=== PATIENT | male | born 1965 | race Caucasian/White ===

== ENCOUNTER 2018-04-28 11:03 | Day surgery (SDC) | payer BC, SELFPAY ==
[2018-04-28] VITALS (7 sets, daily range): BP systolic 83–151; BP diastolic 46–85; PULSE 57–90; RESP 16–22; TEMP 36.5–36.6; O2SAT 95–99; BMI 24.0
--- NOTE | 2018-04-28 | PATH_ITS ---
[facility] Accession Number: [id number] . 01 Material submitted: . TRANSVERSE COLON POLYP . 02 Diagnosis: Transverse Colon, Polyp, Biopsy: Tubular adenoma. MRV/04/29/2018 . 02 Electronically signed: . Velma Martinez MD, Pathologist NPI- [id number] . 01 Gross description: . Received one formalin-filled container labeled with the patient's name and labeled transverse colon polyp. The specimen consists of two 0.2 to 0.4 cm portions of tissue. Entirely submitted in one cassette. ([facility] [place]:[id number]) /[facility] . 02 Pathologist provided ICD-10: D12.3 . 02 CPT . 275445 Specimen Comment: A duplicate report has been generated due to demographic updates. Performed at: 01 [facility] [address] [id number] MD Abdoulaye Arciniega MD Phone: [phone] Performed at: 02 [facility] [address] [place], [place] [id number] MD Velma Martinez MD Phone: [phone]
[2018-04-28] MEDS: LACTATED RINGERS 1,000 ML 42 ML IV (12:03)
--- NOTE | 2018-04-28 13:03 | PM.PREOP ---
Pre-operative Note Interval Note Pre-op Check: Yes History & Physical Reviewed by Physician and Yes Exam Performed Changes: No H&P completed within 30 days and has changed as indicated here:: Patient seen and examined in the preoperative area. History physical examination as documented within the last 30 days is on the chart and has no changes. Bowel prep has been completed. We will proceed with colonoscopy today as planned.
--- NOTE | 2018-04-28 13:48 | PM.OP.1 ---
Operative Date/Time/Diagnoses Date of procedure: 04/28/18 Time of procedure: 13:48 Post-op diagnosis: other (Transverse colon polyp but otherwise normal colon and rectum) Procedure & Clinicians Procedure: Colonoscopy with cold forceps polypectomy Same procedure as scheduled: Yes Indications: 53-year-old male with personal history of colon polyps and recent episode of bright red blood per rectum. He required colorectal surveillance and colonoscopy was recommended. He has had issues with conscious sedation in the past and a remote history of difficult colonoscopy. I therefore recommended that he undergo colonoscopy with anesthesia. Surgeon: Adrien Rivera Click Yes if Unassisted: Yes Anesthesia Type: General Operative Notes Findings: 1. Tortuous and redundant colon but without evidence of stricture or mass 2. Normal terminal ileum 3. Single small polyp in the transverse colon at 65 cm, removed 4. No significant hemorrhoid disease 5. No obvious source of recent rectal bleeding 6. No obvious diverticulosis Closure Type: not applicable Specimen(s): other (Transverse colon polyp at 65 cm) Estimated Blood Loss (mL): 2 Blood products transfused: none Procedure in detail: After obtaining informed consent the patient was brought to the operating room and left supine on the gurney. He was attached all appropriate monitors and placed in left lateral decubitus position. SCOAP time out was performed per standard protocol. After satisfactory induction of anesthesia a digital rectal examination was performed. There were no masses or other abnormalities. Prostate was smooth without nodules. Colonoscope was inserted into the rectum and the bowel was insufflated with carbon dioxide. Under direct visualization of the colonic the scope was advanced to the cecum where the appendiceal orifice and ileocecal valve were identified. Terminal ileum was intubated. Scope was slowly withdrawn and the bowel was meticulously and circumferentially examined. Bowel preparation was good. Findings are as above. A single polyp was removed with cold forceps. Hemostasis was verified. Total withdrawal time was 11 min 50 sec. Retroflexed view of the distal rectum and anus revealed no significant hemorrhoid disease or other abnormalities. Scope was withdrawn and the procedure terminated. Patient taken to recovery in stable condition. Complications: none Condition: stable Disposition: PACU Plan for aftercare: 1. Discharge home 2. Repeat colonoscopy in 5 years pending biopsy results
== END 2018-04-28 14:50 | disposition home or self-care (01) ==
PROVIDERS: Family Provider Family Medicine; PCP Internal Medicine; Visit Provider Surgery
PROC: 0DJD8ZZ Inspection of Lower Intestinal Tract, Via Natural or Artificial Opening Endoscopic (ICD-10-PCS; CPT 45378; principal; 2018-04-28 12:15)
DX: K62.5 Hemorrhage of anus and rectum (principal); Z86.010 Personal history of colon polyps; I10 Essential (primary) hypertension; F84.0 Autistic disorder; D12.3 Benign neoplasm of transverse colon
CPT/HCPCS: 45380; J2250; J2704; J3010

== ENCOUNTER → 2019-01-14 15:50 | Outpatient (CLI) | payer BC, SELFPAY ==
[2019-01-14 17:06] LABS: Alanine Aminotransferase 21 IU/L (21-72); Albumin 4.7 g/dL (3.5-5.0); Albumin Globulin Ratio 1.8 (1.0-2.8); Alkaline Phosphatase 37 U/L (38-126); Aspartate Aminotransferase 32 IU/L (17-59); BUN Creatinine Ratio 24.4 (6-22); Bilirubin Total 0.5 mg/dL (0.2-1.3); Blood Urea Nitrogen 22 mg/dL (9-20); Calcium 9.6 mg/dL (8.4-10.2); Carbon Dioxide 27 mmol/L (22-32); Chloride 101 mmol/L (98-107); Estimated Glomerular Filt Rate > 60.0 mL/min (>60); Globulin 2.6 g/dL (1.7-4.1); Glucose 89 mg/dL (70-100); HEMOLYSIS < 15 (0-50); Potassium 4.5 mmol/L (3.4-5.1); Sodium 139 mmol/L (137-145); Total Protein 7.3 g/dL (6.3-8.2)
== END ==
PROVIDERS: PCP Internal Medicine; Visit Provider Internal Medicine
DX: I10 Essential (primary) hypertension (principal)
CPT/HCPCS: 36415; 80053

== ENCOUNTER → 2020-06-08 15:31 | Outpatient (CLI) | payer OTHER, SELFPAY ==
[2020-06-08 16:08] LABS: BUN Creatinine Ratio 19.7 (6-22); Blood Urea Nitrogen 14 mg/dL (9-20); Calcium 9.6 mg/dL (8.4-10.2); Carbon Dioxide 32 mmol/L (22-32); Chloride 101 mmol/L (98-107); Estimated Glomerular Filt Rate > 60.0 mL/min (>60); Glucose 95 mg/dL (70-100); HEMOLYSIS 21 (0-50); Potassium 4.3 mmol/L (3.4-5.1); Sodium 136 mmol/L (137-145)
== END ==
PROVIDERS: PCP Internal Medicine; Referring Provider Internal Medicine; Visit Provider Internal Medicine
DX: I10 Essential (primary) hypertension (principal); R01.1 Cardiac murmur, unspecified
CPT/HCPCS: 36415; 80048

== ENCOUNTER → 2020-08-28 12:41 | Outpatient (CLI) | payer OTHER, SELFPAY ==
[2020-08-28] MEDS: COVID-19 VACC, Ad26(JANSSEN)/PF 0.5 ML IM (12:55)
== END ==
PROVIDERS: PCP Internal Medicine; Visit Provider Internal Medicine
DX: Z23 Encounter for immunization (principal)
CPT/HCPCS: 0031A; 91303

== ENCOUNTER → 2020-10-10 11:27 | Outpatient (CLI) | payer OTHER, SELFPAY ==
[2020-10-10 13:07] LABS: Alanine Aminotransferase 37 IU/L (<50); Albumin 4.8 g/dL (3.5-5.0); Albumin Globulin Ratio 1.5 (1.0-2.8); Alkaline Phosphatase 36 U/L (38-126); Aspartate Aminotransferase 49 IU/L (17-59); BUN Creatinine Ratio 17.3 (6-22); Bilirubin Total 0.9 mg/dL (0.2-1.3); Blood Urea Nitrogen 14 mg/dL (9-20); Calcium 10.1 mg/dL (8.4-10.2); Carbon Dioxide 29 mmol/L (22-32); Chloride 101 mmol/L (98-107); Cholesterol 230 mg/dL (140-199); Estimated Glomerular Filt Rate > 60.0 mL/min (>60); Globulin 3.1 g/dL (1.7-4.1); Glucose 102 mg/dL (70-100); HEMOLYSIS < 15 (0-50); Potassium 4.8 mmol/L (3.4-5.1); Sodium 138 mmol/L (137-145); Total Protein 7.9 g/dL (6.3-8.2); Triglycerides 34 mg/dL (35-150)
[2020-10-10 13:25] LABS: HDL Cholesterol 126 mg/dL (40-60); LDL Cholesterol Calculated 97 mg/dL (<100)
[2020-10-10 13:33] LABS: Prostate Specific Antigen Scrn 1.68 ng/mL (0.1-4.0)
== END ==
PROVIDERS: PCP Internal Medicine; Referring Provider Internal Medicine; Visit Provider Internal Medicine
DX: I10 Essential (primary) hypertension (principal); Z12.5 Encounter for screening for malignant neoplasm of prostate; Z13.1 Encounter for screening for diabetes mellitus; Z13.220 Encounter for screening for lipoid disorders; Z13.6 Encounter for screening for cardiovascular disorders
CPT/HCPCS: 36415; 80053; 80061; G0103

== ENCOUNTER → 2021-10-05 08:39 | Outpatient (CLI) | payer OTHER, SELFPAY ==
[2021-10-05 10:24] LABS: Alanine Aminotransferase 39 IU/L (<50); Albumin 4.9 g/dL (3.5-5.0); Albumin Globulin Ratio 1.9 (1.0-2.8); Alkaline Phosphatase 35 U/L (38-126); Aspartate Aminotransferase 38 IU/L (17-59); BUN Creatinine Ratio 18.5 (6-22); Bilirubin Total 0.8 mg/dL (0.2-1.3); Blood Urea Nitrogen 15 mg/dL (9-20); Calcium 9.8 mg/dL (8.4-10.2); Carbon Dioxide 31 mmol/L (22-32); Chloride 106 mmol/L (98-107); Cholesterol 215 mg/dL (140-199); Estimated Glomerular Filt Rate > 60 mL/min (>60); Globulin 2.6 g/dL (1.7-4.1); Glucose 99 mg/dL (70-100); HEMOLYSIS < 15 (0-50); Potassium 5.1 mmol/L (3.4-5.1); Sodium 142 mmol/L (137-145); Total Protein 7.5 g/dL (6.3-8.2); Triglycerides 53 mg/dL (35-150)
[2021-10-05 10:33] LABS: HDL Cholesterol 111 mg/dL (40-60); LDL Cholesterol Calculated 93 mg/dL (<100)
[2021-10-05 10:53] LABS: Prostate Specific Antigen Scrn 2.37 ng/mL (0.1-4.0)
== END ==
PROVIDERS: PCP Internal Medicine; Referring Provider Internal Medicine; Visit Provider Internal Medicine
DX: I10 Essential (primary) hypertension (principal); Z12.5 Encounter for screening for malignant neoplasm of prostate; Z13.6 Encounter for screening for cardiovascular disorders
CPT/HCPCS: 36415; 80053; 80061; G0103

== ENCOUNTER → 2022-10-11 08:11 | Outpatient (CLI) | payer OTHER, SELFPAY ==
[2022-10-11 10:09] LABS: HEMOLYSIS < 15 (0-50)
[2022-10-11 10:31] LABS: Alanine Aminotransferase 64 IU/L (<50); Albumin 4.9 g/dL (3.5-5.0); Albumin Globulin Ratio 1.8 (1.0-2.8); Alkaline Phosphatase 46 U/L (38-126); Aspartate Aminotransferase 64 IU/L (17-59); BUN Creatinine Ratio 19.7 (6-22); Bilirubin Total 0.9 mg/dL (0.2-1.3); Blood Urea Nitrogen 14 mg/dL (9-20); Calcium 9.3 mg/dL (8.4-10.2); Carbon Dioxide 28 mmol/L (22-32); Chloride 100 mmol/L (98-107); Estimated Glomerular Filt Rate > 60 mL/min (>60); Globulin 2.7 g/dL (1.7-4.1); Glucose 91 mg/dL (70-100); Potassium 4.4 mmol/L (3.4-5.1); Sodium 137 mmol/L (137-145); Total Protein 7.6 g/dL (6.3-8.2)
[2022-10-11 15:07] LABS: Prostate Specific Antigen Scrn 1.48 ng/mL (0.1-4.0)
== END ==
PROVIDERS: PCP Internal Medicine; Referring Provider Internal Medicine; Visit Provider Internal Medicine
DX: I10 Essential (primary) hypertension (principal); Z79.899 Other long term (current) drug therapy; Z12.5 Encounter for screening for malignant neoplasm of prostate
CPT/HCPCS: 36415; 80053; G0103

== ENCOUNTER → 2023-04-10 08:15 | Outpatient (CLI) | payer OTHER, SELFPAY ==
[2023-04-10 10:28] LABS: Alanine Aminotransferase 50 IU/L (<50); Albumin 4.7 g/dL (3.5-5.0); Albumin Globulin Ratio 1.7 (1.0-2.8); Alkaline Phosphatase 44 U/L (38-126); Aspartate Aminotransferase 63 IU/L (17-59); BUN Creatinine Ratio 22.1 (6-22); Bilirubin Total 0.8 mg/dL (0.2-1.3); Blood Urea Nitrogen 15 mg/dL (9-20); Carbon Dioxide 29 mmol/L (22-32); Chloride 99 mmol/L (98-107); Estimated Glomerular Filt Rate > 60 mL/min (>60); Globulin 2.7 g/dL (1.7-4.1); Glucose 107 mg/dL (70-100); HEMOLYSIS < 15 (0-50); Potassium 4.2 mmol/L (3.4-5.1); Sodium 137 mmol/L (137-145); Total Protein 7.4 g/dL (6.3-8.2)
== END ==
PROVIDERS: PCP Internal Medicine; Referring Provider Internal Medicine; Visit Provider Internal Medicine
DX: R74.01 Elevation of levels of liver transaminase levels (principal); I10 Essential (primary) hypertension
CPT/HCPCS: 36415; 80053

== ENCOUNTER → 2023-04-14 12:52 | Outpatient (CLI) | payer OTHER, SELFPAY ==
--- NOTE | 2023-04-14 12:54 | DI.US.S_ITS ---
PROCEDURE: US ABDOMEN LIMITED INDICATIONS: TRANSAMINITIS TECHNIQUE: Real-time scanning was performed of the abdominal and retroperitoneal organs, with image documentation. COMPARISON: None. FINDINGS: Liver: The liver measures 15.9 cm in length and demonstrates increased echogenicity. Gallbladder: The gallbladder wall measures 1.7 mm in diameter. No stones, sludge, pericholecystic fluid, or sonographic Loera sign. Biliary ducts: Intrahepatic bile ducts are non-dilated. Extrahepatic bile duct caliber measures 3.7 mm. Normal is 6-7 mm or less in diameter, or 10 mm or less post-cholecystectomy. Pancreas: Visualized portions of the pancreas are sonographically normal. The body and tail of the pancreas are not well visualized. IMPRESSION: 1. No cholelithiasis or findings to suggest choledocholithiasis or acute cholecystitis. 2. Increased hepatic echogenicity noted likely related to fatty infiltration of the liver but other sources of hepatocellular disease cannot be excluded. Dictated by: Bia Golden M.D. on 04/14/2023 at 14:40 Approved by: Bia Golden M.D. on 04/14/2023 at 14:41
[2023-04-14 14:35] LABS: Prothrombin Time 11.3 SECONDS (10.1-12.7)
[2023-04-14 14:41] LABS: Alanine Aminotransferase 57 IU/L (<50); Albumin 4.7 g/dL (3.5-5.0); Albumin Globulin Ratio 1.6 (1.0-2.8); Alkaline Phosphatase 40 U/L (38-126); Aspartate Aminotransferase 57 IU/L (17-59); Bilirubin Total 1.1 mg/dL (0.2-1.3); Bilirubin Unconjugated 1.1 mg/dL (0.0-1.1); Creatine Kinase 119 U/L (55-170); HEMOLYSIS < 15 (0-50); Total Protein 7.7 g/dL (6.3-8.2)
[2023-04-14 14:57] LABS: HEMOLYSIS < 15 (0-50); Iron 118 ug/dL (49-181)
[2023-04-14 15:08] LABS: Percent Iron Saturation 47 % (20-50); Total Iron Binding Capacity 252 ug/dL (261-462); Transferrin 211 mg/dL (206-381)
[2023-04-14 15:29] LABS: TSH w/ Reflex to FT4 0.67 uIU/mL (0.47-4.68)
[2023-04-14 17:13] LABS: Hepatitis B Surface Antigen NEGATIVE s/c (NEGATIVE)
[2023-04-14 17:26] LABS: Hep C Virus Ab w/Reflex Quant NEGATIVE s/c (NEGATIVE)
[2023-04-15 05:09] LABS: Ceruloplasmin 19.7 mg/dL (16.0-31.0)
[2023-04-16 04:09] LABS: Hepatitis B Surf Ab Qualitativ Reactive (.)
[2023-04-16 21:40] LABS: Smooth Muscle Antibody 12 Units (0-19)
[2023-04-17 18:17] LABS: ANA Screen, IFA Negative (.)
[2023-04-18 20:55] LABS: Deamidated Gliadin IgA 8 units (0-19); Deamidated Gliadin IgG 4 units (0-19); IGA 376 mg/dL (90-386); t-Transglutaminase IgA <2 U/mL (0-3)
== END ==
PROVIDERS: PCP Internal Medicine; Referring Provider Internal Medicine; Visit Provider Internal Medicine
DX: R74.01 Elevation of levels of liver transaminase levels (principal)
CPT/HCPCS: 36415; 76705; 80076; 82390; 82550; 82784; 83516; 83540; 83550; 84443; 85610; 86038; 86255; 86706; 86803; 87340

== ENCOUNTER 2023-09-11 10:21 | Day surgery (SDC) | payer OTHER, SELFPAY ==
--- NOTE | 2023-09-11 | PATH_ITS ---
[facility] Accession Number: [id number] No. of containers..03 Tissue . 01 Material submitted: . PART A: colon - ASCENDING COLON POLYP PART B: colon - TRANSVERSE COLON POLYP PART C: rectum - RECTAL POLYP . 01 Diagnosis: A. Colon, ascending, polyp biopsy: Tubular adenoma. -- B. Colon, transverse, polyp biopsy: Tubular adenoma. -- C. Colon, rectum, polyp biopsy: Hyperplastic polyp. TXN 09/15/2023 1335 Local . 01 Electronically signed: . Tawfegabriel Gregorio MD, Pathologist NPI- [id number] . 01 Gross description: . A. Received in formalin, labeled with two identifiers and ascending colon polyp, is a barrera soft tissue fragment measuring 0.4 cm in greatest dimension. Submitted entirely in cassette A1. B. Received in formalin, labeled with two identifiers and transverse colon polyp, is a barrera soft tissue fragment measuring 0.3 cm in greatest dimension. Submitted entirely in cassette B1. C. Received in formalin, labeled with two identifiers and rectal polyp, is a barrera soft tissue fragment measuring 0.3 cm in greatest dimension. Submitted entirely in cassette C1. ([facility]:[id number]) /[facility] 09/13/2023 1627 Local . 01 Pathologist provided ICD-10: Z12.11 . 01 CPT . 495745, 980024, 634761 Specimen Comment: A courtesy copy of this report has been sent to [phone] Performed at: 01 [facility] [address] [place] [address] [address] [facility], [place], [place] [id number] MD Abdoulaye Arciniega MD Phone: [phone]
[2023-09-11 10:47] VITALS: BP 175/85; PULSE 83; RESP 16; TEMP 37; O2SAT 96
[2023-09-11] MEDS: LACTATED RINGERS 1,000 ML 42 ML IV (10:55)
--- NOTE | 2023-09-11 10:59 | PM.HP.1 ---
History of Present Illness History of Present Illness Date Patient Seen: 09/11/23 Time Patient Seen: 10:59 Chief complaint: Colonoscopy Narrative: Avila is a 58-year-old man who is here for colonoscopy. His last 1 was in [address] Rivera. He did have a tubular adenoma removed. He has had other polyps removed. [facility] Medical History (Updated 09/11/23 @ 11:00 by Silverio Guo MD) Fatty liver disease, nonalcoholic History of adenomatous polyp of colon (01/08/12) Benign essential HTN Colon polyps (11/05/13) Autism spectrum disorder (2014) Surgical History History of colonoscopy with polypectomy (11/05/13) Family History Grandmother Cancer Diabetes mellitus Father Hypertension Social History marital status: number of children: 0 household members: spouse lives independently: Yes caregiver/support person: No housing: other pets and animals: Yes education level: master's degree occupational status: employed [employer]/faith: Agn[employer] travel history: over 6 months ago leisure activities: other Smoking Status: Smoker, status unknown Tobacco: How many years used: 0 quit status: quit date established second hand exposure: Yes (Young adulthood) alcohol intake: current substance use type: does not use Meds Home Medications and Allergies Home Medications Medication Instructions Recorded Confirmed Type lisinopril 20 mg tablet 20 mg PO DAILY #90 tabs 04/17/23 09/11/23 Rx Allergies Allergy/AdvReac Type Severity Reaction Status Date / Time aspirin AdvReac Mild Gastrointestinal Verified 09/11/23 10:24 Upset Exam Vital Signs (past 8 hours): - 09/11/23 10:47 Temperature 98.6 F Pulse Rate 83 Respiratory Rate 16 Blood Pressure 175/85 H Pulse Oximetry 96 Oxygen Delivery Method Room Air Oxygen Delivery Method Room Air Const General: healthy appearing Assessment & Plan Assessment and plan (1) Colon cancer screening: Status: Acute (2) History of adenomatous polyp of colon: Status: Inactive Plan We reviewed the risks and benefits of colonoscopy for a history of adenomatous polyps and he would like to proceed.
[2023-09-11 11:35] VITALS: BP 87/62; PULSE 69; RESP 14; TEMP 37; O2SAT 94
--- NOTE | 2023-09-11 11:38 | PM.OP.COLON ---
Operative Date/Time/Diagnoses Date of procedure: 09/11/23 Time of procedure: 11:38 Pre-op diagnosis: History of adenomatous polyps Post-op diagnosis: same Procedure & Clinicians Study performed: Colonoscopy Same procedure as scheduled: Yes Surgeon: Silverio Guo Procedure Notes Procedure in detail: Surgeon: Silverio Guo MD Anesthesia: Velma Jimenez CRNA Procedure: The patient was brought to the endoscopy suite, placed in left lateral decubitus position. The patient was connected to monitoring devices. A time-out was performed. Sedation was administered. Once the patient was adequately sedated, a digital rectal exam was performed and was normal. The scope was then inserted and advanced to the cecum where the appendiceal orifice was identified and photographed. The scope was then slowly withdrawn over greater than 6 minutes. The mucosa was thoroughly inspected. A 3 mm polyp was found in the ascending colon and removed with a Jumbo forceps. A 3 mm polyp was found in the transverse colon and removed with a Jumbo forceps. A 3 mm polyp was found in the distal rectum and removed with the Jumbo forceps. The scope was retroflexed in the rectum. No other abnormalities were seen. The scope was straightened and removed. The patient was awakened and brought to recovery. Scope withdrawal time: 13 minutes Sedation time: 20 minutes EBL: 3 mL Findings: Small polyps in the ascending colon, transverse colon and rectum Post-procedure Disposition: PACU
[2023-09-11 11:40] VITALS: BP 102/62; PULSE 69; RESP 13; O2SAT 95
[2023-09-11 11:44] VITALS: BP 106/66; PULSE 64; RESP 21; TEMP 36.3; O2SAT 95
[2023-09-11 11:46] VITALS: BP 109/67; PULSE 62; RESP 17; O2SAT 94
== END 2023-09-11 12:05 | disposition home or self-care (01) ==
PROVIDERS: PCP Internal Medicine; Referring Provider Surgery; Visit Provider Surgery
PROC: 0DJD8ZZ Inspection of Lower Intestinal Tract, Via Natural or Artificial Opening Endoscopic (ICD-10-PCS; CPT 45378; principal; 2023-09-11 11:15)
DX: Z12.11 Encounter for screening for malignant neoplasm of colon (principal); Z86.010 Personal history of colon polyps
CPT/HCPCS: 45380; J2704

== ENCOUNTER → 2023-10-25 10:23 | Outpatient (CLI) | payer OTHER, SELFPAY ==
[2023-10-25 10:56] LABS: Add Manual Diff / Slide Review NO; Basophils Absolute Auto 0 /uL (0-100); Basophils Percent Auto 0.7 % (0-2); Eosinophils Absolute Auto 100 /uL (0-450); Eosinophils Percent Auto 1.6 % (2-4); Hematocrit 46.6 % (41-53); Hemoglobin 16.2 g/dL (13.5-17.5); Lymphocytes Absolute Auto 1500 /uL (1100-4500); Lymphocytes Percent Auto 24.9 % (25-40); Mean Corpuscular HGB Conc 34.7 % (30-36); Mean Corpuscular Hemoglobin 33.5 PG (26-34); Mean Corpuscular Volume 96.5 fL (80-100); Monocytes Absolute Auto 400 /uL (0-900); Monocytes Percent Auto 6.7 % (3-14); Neutrophils Absolute Auto 4000 /uL (1500-7000); Neutrophils Percent Auto 66.1 % (50-75); Platelet Count 234 X10^3/uL (150-400); Red Blood Cell Count 4.83 X10^6/uL (4.5-5.9); Red Cell Distribution Width 13.3 % (11.6-14.8); White Blood Cell Count 6.1 X10^3/uL (4.5-11.0)
[2023-10-25 12:24] LABS: Alanine Aminotransferase 61 IU/L (<50); Albumin 4.9 g/dL (3.5-5.0); Alkaline Phosphatase 42 U/L (38-126); Aspartate Aminotransferase 70 IU/L (17-59); BUN Creatinine Ratio 20.9 (6-22); Bilirubin Total 0.8 mg/dL (0.2-1.3); Blood Urea Nitrogen 14 mg/dL (9-20); Calcium 9.7 mg/dL (8.4-10.2); Carbon Dioxide 29 mmol/L (22-32); Chloride 105 mmol/L (98-107); Cholesterol 207 mg/dL (140-199); Estimated Glomerular Filt Rate > 60 mL/min (>60); Globulin 2.5 g/dL (1.7-4.1); Glucose 102 mg/dL (70-100); HEMOLYSIS < 15 (0-50); Potassium 4.4 mmol/L (3.4-5.1); Sodium 140 mmol/L (137-145); Total Protein 7.4 g/dL (6.3-8.2); Triglycerides 48 mg/dL (35-150)
[2023-10-25 12:47] LABS: HDL Cholesterol 117 mg/dL (40-60); LDL Cholesterol Calculated 80 mg/dL (<100)
[2023-10-25 12:57] LABS: Prostate Specific Antigen 1.54 ng/mL (0.10-4.00)
== END ==
PROVIDERS: PCP Internal Medicine; Referring Provider Internal Medicine; Visit Provider Internal Medicine
DX: K76.0 Fatty (change of) liver, not elsewhere classified (principal); R01.1 Cardiac murmur, unspecified; I10 Essential (primary) hypertension; Z12.5 Encounter for screening for malignant neoplasm of prostate
CPT/HCPCS: 36415; 80053; 80061; 84153; 85025

== ENCOUNTER → 2024-10-23 12:25 | Outpatient (CLI) | payer OTHER, SELFPAY ==
[2024-10-23 13:06] LABS: Alanine Aminotransferase 65 IU/L (<50); Albumin 4.9 g/dL (3.5-5.0); Albumin Globulin Ratio 2.1 (1.0-2.8); Alkaline Phosphatase 46 U/L (38-126); Aspartate Aminotransferase 74 IU/L (17-59); BUN Creatinine Ratio 18.7 (6-22); Bilirubin Total 1.1 mg/dL (0.2-1.3); Blood Urea Nitrogen 14 mg/dL (9-20); Calcium 9.5 mg/dL (8.4-10.2); Carbon Dioxide 26 mmol/L (22-32); Chloride 102 mmol/L (98-107); Estimated Glomerular Filt Rate > 60 mL/min (>60); Globulin 2.3 g/dL (1.7-4.1); Glucose 95 mg/dL (70-99); HEMOLYSIS < 15 (0-50); Potassium 4.6 mmol/L (3.4-5.1); Sodium 138 mmol/L (137-145); Total Protein 7.2 g/dL (6.3-8.2)
[2024-10-23 13:37] LABS: Prostate Specific Antigen Scrn 7.34 ng/mL (0.1-4.0)
== END ==
PROVIDERS: PCP Internal Medicine; Referring Provider Internal Medicine; Visit Provider Internal Medicine
DX: Z12.5 Encounter for screening for malignant neoplasm of prostate (principal); I10 Essential (primary) hypertension; K76.0 Fatty (change of) liver, not elsewhere classified
CPT/HCPCS: 36415; 80053; G0103

== ENCOUNTER → 2024-10-29 11:27 | Outpatient (CLI) | payer OTHER, SELFPAY ==
[2024-10-30 23:08] LABS: PSA Free % 8.5 % (.); PSA, Total 7.8 ng/mL (0.0-4.0)
== END ==
PROVIDERS: PCP Internal Medicine; Referring Provider Internal Medicine; Visit Provider Internal Medicine
DX: R97.20 Elevated prostate specific antigen [PSA] (principal)
CPT/HCPCS: 36415; 84153; 84154

== ENCOUNTER → 2024-12-25 12:17 | Outpatient (CLI) | payer OTHER, SELFPAY ==
[2024-12-28 06:39] LABS: PSA, Total 1.7 ng/mL (0.0-4.0)
== END ==
PROVIDERS: Urology; PCP Internal Medicine; Referring Provider Internal Medicine; Visit Provider Internal Medicine
DX: R97.20 Elevated prostate specific antigen [PSA] (principal)
CPT/HCPCS: 36415; 84153; 84154

== ENCOUNTER → 2025-03-17 14:31 | Outpatient (CLI) | payer OTHER, SELFPAY ==
--- NOTE | 2025-03-17 14:34 | DI.RAD.S_ITS ---
PROCEDURE: XR LUMBAR SPINE MIN 4V INDICATIONS: l4-l5 pain TECHNIQUE: 5 views of the lumbar spine were acquired, including bilateral oblique views. COMPARISON: None. FINDINGS: Bones: 5 nonrib-bearing vertebrae are present. There is normal bony alignment. No vertebral body compression fractures. No suspicious bony lesions. There is disc space narrowing at L2-3 and at L4-5 and L5-S1. There are anterior osteophytes of the endplates from L2 through S1. The pedicles, lamina, and spinous processes are intact. Soft tissues: Overlying bowel gas pattern is normal. No suspicious soft tissue calcifications. IMPRESSION: No acute bony abnormality. Multilevel degenerative changes, as described. Dictated by: Giovanni Mantilla M.D. on 03/17/2025 at 16:01 Approved by: Giovanni Mantilla M.D. on 03/17/2025 at 16:03
[2025-03-20 00:39] LABS: PSA, Total 37.4 ng/mL (0.0-4.0)
== END ==
PROVIDERS: Urology; PCP Internal Medicine; Referring Provider Internal Medicine; Visit Provider Internal Medicine
DX: M54.50 Low back pain, unspecified (principal); R97.20 Elevated prostate specific antigen [PSA]; M51.369 Other intervertebral disc degeneration, lumbar region without mention of lumbar back pain or lower extremity pain
CPT/HCPCS: 36415; 72110; 84153; 84154

== ENCOUNTER → 2025-03-29 14:51 | Outpatient (CLI) | payer OTHER, SELFPAY ==
[2025-03-29 16:27] LABS: Prostate Specific Antigen 25.5 ng/mL (0.10-4.00)
== END ==
PROVIDERS: PCP Internal Medicine; Referring Provider Urology; Visit Provider Urology
DX: R97.20 Elevated prostate specific antigen [PSA] (principal)
CPT/HCPCS: 36415; 84153

== ENCOUNTER → 2025-06-15 09:05 | Outpatient (CLI) | payer OTHER, SELFPAY ==
[2025-06-16 09:09] LABS: PSA, Total 1.6 ng/mL (0.0-4.0)
== END ==
PROVIDERS: PCP Internal Medicine; Referring Provider Urology; Visit Provider Urology
DX: R97.20 Elevated prostate specific antigen [PSA] (principal)
CPT/HCPCS: 36415; 84153; 84154